=== PATIENT | male | born 1975 | race Caucasian/White ===

== ENCOUNTER 2016-10-15 10:07 | Emergency (ER) | payer OTHER ==
--- NOTE | ~2016-10-15 | CR127 ---
[facility] A Service of [facility] & [facility] RADIOLOGY TEXT RESULTS PATIENT: CARINA HUERTAS LOCATION: [place] : 75 UNIT #: [id number] AGE: [address]: ADAMARIS DUBON SEX: M ORDER DR: [id number] [facility] [address], [place] [address] [id number] MR#: [id number] Acc #: [id number] NAME: CARINA HUERTAS : 1975 SEX: M STUDY DATE/TIME: 10/15/2016 12:03 UNIT: [facility] ROOM: STUDY DESCRIPTION: CR Foot Complete Min 3 View Rt Attending Physician: Adamaris Dubon Aprn Ordering Physician: Adamaris Dubon Aprn Primary Care Physician: Primary Care Physician No MEDICAL IMAGING REPORT This report is preliminary unless electronic signature is present EXAM Right foot 3 views, 10/15/2016 12:03 hours HISTORY Patient fell down steps yesterday. Complaining of right foot and ankle pain since fall. COMPARISON None. FINDINGS AP, lateral and oblique views demonstrate normal bone density. There is no foot fracture or dislocation. IMPRESSION Negative right foot. Dictated by... Marisa Chou M.D. THIS IS AN ELECTRONICALLY VERIFIED REPORT Marisa Chou M.D. at 10/15/2016 2:29 PM Ash TD: 10/15/2016 13:07 JOB #: [id number] MEDICAL IMAGING REPORT Page 1 of 1 COPY
--- NOTE | ~2016-10-15 | CR21 ---
[facility] A Service of [facility] & [facility] RADIOLOGY TEXT RESULTS PATIENT: CARINA HUERTAS LOCATION: [facility] : 75 UNIT #: [id number] AGE: [address]: ADAMARIS DUBON SEX: M ORDER DR: [id number] [facility] [address] [place], [place] [address] [id number] E MR#: [id number] Acc #: [id number] NAME: CARINA HUERTAS : 1975 SEX: M STUDY DATE/TIME: 10/15/2016 12:02 UNIT: [facility] ROOM: STUDY DESCRIPTION: CR Ankle Min 3 Views Rt Attending Physician: Adamaris Dubon Aprn Ordering Physician: Adamaris Dubon Aprn Primary Care Physician: Primary Care Physician No MEDICAL IMAGING REPORT This report is preliminary unless electronic signature is present EXAM Right ankle 3 views HISTORY Right ankle pain since yesterday, fell down steps FINDINGS AP, lateral, and oblique projections of the ankle show satisfactory integrity of the joint mortise with a smooth articular surface. There is no identifiable fracture, dislocation, or radiopaque foreign body. IMPRESSION Normal ankle. Dictated by... Karolina Negrete M.D. THIS IS AN ELECTRONICALLY VERIFIED REPORT Karolina Negrete M.D. at 10/15/2016 3:57 PM Yariel TD: 10/15/2016 14:06 JOB #: [id number] MEDICAL IMAGING REPORT Page 1 of 1 COPY
== END 2016-10-15 13:27 | disposition home or self-care (01) ==
LOC: CFTX 10:07 → CED 10:07 → CFTX 10:54
DX: S90.01XA Contusion of right ankle, initial encounter (principal); F17.210 Nicotine dependence, cigarettes, uncomplicated; Z88.2 Allergy status to sulfonamides; Z88.1 Allergy status to other antibiotic agents; W19.XXXA Unspecified fall, initial encounter; Y92.009 Unspecified place in unspecified non-institutional (private) residence as the place of occurrence of the external cause
CPT/HCPCS: 73610; 73630; 99283